=== PATIENT | female | born 1965 | race Caucasian/White ===

== ENCOUNTER 2020-06-09 12:28 | Inpatient (IN) | payer BC ==
[2020-06-09] MEDS ORDERED: Iopamidol-370 76% 500 ML 1 ML ONE (13:31)
[2020-06-09 13:37] LABS: Hemoglobin 15.6 g/dL (12.0-16.0); Mean Corpuscular HGB CONC 32.8 g/dL (32.0-36.0); Mean Corpuscular Hemoglobin 30.5 pg (27.0-31.0); Mean Corpuscular Volume 93.1 fL (78.0-98.0); Mean Platelet Volume 7.3 fL (7.4-10.4); Platelet Count 276 thou/uL (130-400); RBC Distribution Width 12.7 % (11.5-14.5); White Blood Cell (WBC) Count 21.5 thou/uL (4.8-10.8)
[2020-06-09 13:53] LABS: ALT (SGPT) 40 U/L (8-55); AST (SGOT) 27 U/L (5-34); Albumin 3.8 g/dL (3.5-5.0); Alkaline Phosphatase 83 U/L (40-110); Anion Gap 19 mmol/L (10-20); BUN (Urea Nitrogen) 13 mg/dL (9.8-20.1); Bilirubin, Total 0.7 mg/dL (0.2-1.2); Calc. Creatinine Clearance 0 mL/min (70-130); Calcium 8.6 mg/dL (7.8-10.44); Carbon Dioxide 20 mmol/L (22-29); Chloride 107 mmol/L (98-107); Globulin 3.4 g/dL (2.4-3.5); Glucose 199 mg/dL (70-105); Protein, Total 7.2 g/dL (6.0-8.3); Sodium 142 mmol/L (136-145)
[2020-06-09 13:57] LABS: CKMB 3.8 ng/mL (0-6.6)
--- NOTE | 2020-06-09 13:59 | RAD ---
EXAM: CHEST ONE VIEW HISTORY: Dyspnea, shortness of breath. COMPARISON: 04/08/2011 FINDINGS: The cardiac silhouette and pulmonary vasculature are within normal limits. There is a dense area of o pacity seen in the lateral aspect left lung base and the region of the lingula worrisome for pneumonia. Right lung appears clear. Degenerative changes are seen in the spine. IMPRESSION: Opacity lateral left lung base in the region of the lingula. Findings are worrisome for pneumonia. Fo llow-up to complete resolution is recommended.
[2020-06-09 14:26] LABS: Band 1 % (5-11); Lymphocytes 7 % (21-51); MDiff Complete? YES; Monocytes 4 % (0-10); Neutrophil 88 % (42-75); Platelet Morphology Comment Appears Adequate; RBC Morphology Normal
--- NOTE | 2020-06-09 15:31 | CT ---
CT arteriogram chest with IV contrast and 3-D imaging HISTORY: Dyspnea. Chest pain. FINDINGS: Extensive cylindrical and oval filling defects are present throughout segmental and subsegm ental bilateral pulmonary arteries, each main pulmonary artery, and a moderate sized defect straddling the pulmonary trunk bifurcation. Each lobe is involved. There is mild anterior bowing of t he right ventricle. IV contrast injected in the left arm distends through the right atrium and into the uppermost portions of the IVC. Peripheral infiltrate is present within the lateral aspect of the left upper lobe. Nonspecific lymph nodes are scattered about the mediastinum. The superiormost images show heterogeneous enlargement of the left thyroid lobe inferior pole with sm all foci of calcification. IMPRESSION : Extensive bilateral pulmonary emboli with overall high-grade clot burden and evidence of mild right v entricular strain. Infiltrate within the lateral aspect of the left upper lobe favored to represent a superimposed infla mmatory process (rather than developing pulmonary infarct). Partially visualized heterogeneous left thyroid lobe mass. Please consider nonemergent thyroid sonogr am for better characterization.
[2020-06-09] MEDS ORDERED: cefTRIAXone\\ROCEPHIN 2 GM VIAL ONE (15:38)
[2020-06-09] MEDS ORDERED: Aspirin Chewable 81 MG TAB ONE (15:39)
[2020-06-09 15:57] LABS: PTT 27.8 sec (22.9-36.1); Prothrombin Time 13.2 sec (12.0-14.7)
[2020-06-09 16:58] LABS: SARS-CoV-2 NAA Rapid Test Not Detected (NotDetected)
[2020-06-09] MEDS ORDERED: Heparin 25,000 units/D5W 500 ML IVPB SCH (17:00)
[2020-06-09] MEDS ORDERED: Heparin 10,000 UNITS/ 10 ML VIAL SLOW IVP SCH (17:00)
[2020-06-09] MEDS ORDERED: Heparin 25,000 units/D5W 500 ML ONE (17:19)
[2020-06-09] MEDS ORDERED: Heparin 10,000 UNITS/ 10 ML VIAL ONE (17:19)
[2020-06-09] MEDS ORDERED: Azithromycin 500 MG VIAL ONE (17:25)
--- NOTE | 2020-06-09 17:36 | CON ---
DATE OF CONSULTATION: 06/09/2020 REASON FOR CONSULTATION: Pulmonary embolism. HISTORY OF PRESENT ILLNESS: Ms Bradford is a 55-year-old female who presents to this hospital with a 2-week history of increasing shortness of breath, particularly worse over the last 24 hours. She did have one near syncopal event at home when bending over. She has been found to have large bilateral pulmonary emboli. To her knowledge, this is the 1st time she has had a pulmonary embolism. She denies any risk factors other than smoking. Of note, she has no history of control pill use, estrogen or progesterone use, cancer, thrombophilia, prolonged bed rest, recent surgery, or trauma. PAST MEDICAL HISTORY: Asthma. PAST SURGICAL HISTORY: Tonsillectomy and tubal ligation. SOCIAL HISTORY: She smokes about a pack per day. Does not use illicit drugs. Does not consume alcohol. She used to work in [employer], but is currently not employed. FAMILY MEDICAL HISTORY: Unremarkable for pulmonary embolism. MEDICATIONS: She uses an albuterol inhaler as needed. ALLERGIES: NONE. REVIEW OF SYSTEMS: Remarkable for dyspnea. No cough, no fever, no chills, no lack of taste or lack of smell. Otherwise, 12-point review of systems negative. PHYSICAL EXAMINATION: VITAL SIGNS: Temperature 98, pulse 114, blood pressure 147/88, respiratory rate 22, and O2 saturation 94% on 2 L. HEENT: Unremarkable. NECK: No adenopathy, JVD, or bruits. CARDIOVASCULAR: S1, S2. Regular without ventricular heave. ABDOMEN: Soft and nontender to palpation. EXTREMITIES: No clubbing or cyanosis. She has increased girth in both lower extremities. LABORATORY DATA: White blood cell count 21.5, hematocrit 47, platelet count 276. INR 1. D-dimer is 4.33, PTT 27.8. Sodium 142, potassium 4, chloride 107, CO2 of 20, BUN 13, creatinine 0.7, glucose 199. Troponin 0.256. Her COVID test is pending. CT pulmonary angiogram was reviewed, shows large bilateral pulmonary emboli. ASSESSMENT: Pulmonary embolism. The patient is normotensive and does not have much hypoxia that is not correctable, 2 L nasal cannula. RECOMMENDATIONS: Based on the way she looks right now, I think a heparin bolus and drip with close monitoring in the ICU is adequate. She should be anticoagulated in some form or fashion for at least 6 months and potentially longer if we cannot find a provoking risk factor. At the current time, I would withhold thrombolytics because of her stability. If she worsens, then they could be used. We will follow through on her COVID testing results. The patient needs to quit smoking. Job ID: [id number]
[2020-06-09 17:51] LABS: Troponin I 0.192 ng/mL (< 0.028)
[2020-06-09 18:12] LABS: Lactic Acid 2.4 mmol/L (0.5-2.2)
--- NOTE | 2020-06-09 18:35 | HP ---
PRIMARY CARE PHYSICIAN: Carly Saldaña MD CHIEF COMPLAINT: Shortness of breath. HISTORY OF PRESENT ILLNESS: This is a 55-year-old white female with a past medical history of asthma and obesity. She reports that some dyspnea over the past two weeks, and then over the past 2 to 3 days, she has had severe worsening of her shortness of breath. This is associated with a cough and it intermittently produces scant sputum. She felt worse today, so she called EMS. The patient was found to be saturating 88% on room air by EMS, came up well with oxygen. She was also tachycardic, was given albuterol, IV fluids, and Solu-Medrol. Per EMS, she had a temperature up to 100.2 last night, but the patient denied fever to me. In the emergency room, the patient had elevated white blood cell count of 21,000 and an elevated D-dimer, so she had a CT scan done of her chest, which showed a possible right upper lobe infiltrate, but also with moderate burden bilateral pulmonary emboli with some mild right heart strain. The patient was given heparin bolus and started on heparin drip, and the ER doctor did talk to Dr. Stone, who agreed with that plan, and we are now admitting the patient to the ICU. The patient was also given Rocephin and azithromycin in the emergency room, and she is starting to feel a little better right now. REVIEW OF SYSTEMS: CONSTITUTIONAL: See HPI. EYES: No double vision or blurred vision. ENT: She has chronic nasal congestion. No sore throat. CARDIOVASCULAR: No chest pain. No palpitations or racing heart. PULMONARY: See HPI. GASTROINTESTINAL: No abdominal pain. No nausea or vomiting. No diarrhea or constipation. GENITOURINARY: No dysuria or hematuria. MUSCULOSKELETAL: She has some chronic muscle aches, but nothing acute. SKIN: No rashes or lesions she has noted. NEUROLOGIC: No numbness, tingling, or focal weakness. PAST MEDICAL HISTORY: Asthma. PAST SURGICAL HISTORY: 1. Tonsillectomy. 2. Tubal ligation. SOCIAL HISTORY: The patient smokes one pack of cigarettes per day. No alcohol or illicit drug use. She lives with her , Mykel Mathews. This patient is a full code. Should she be incapacitated, her would be her medical decision maker. FAMILY HISTORY: No significant family medical history of blood clots, though she does have a half sibling, who had thyroid cancer. ALLERGIES: NO KNOWN DRUG ALLERGIES. CURRENT MEDICATIONS: Albuterol inhaler as needed. PHYSICAL EXAMINATION: VITAL SIGNS: Blood pressure 147/88, pulse 114, respirations 22, temperature 98.0, O2 saturation 94% on 2 L of oxygen. GENERAL: This is a well-developed obese white female, in no acute distress. HEENT: Pupils equal, round, and reactive to light. Oropharynx clear without lesions, erythema, or exudate. NECK: Supple. No lymphadenopathy. No thyroid nodules or enlargement. No JVD. HEART: Regular rhythm. Mildly tachycardic. No murmurs, rubs, or gallops. LUNGS: Clear to auscultation bilaterally. No wheezes, crackles, or rhonchi. No tachypnea. No increased work of breathing. ABDOMEN: Soft, obese, nontender to palpation. Normoactive bowel sounds. No hepatosplenomegaly or other masses. EXTREMITIES: No clubbing, cyanosis, or edema. The patient does have a positive Kasandra sign on the left. SKIN: No rashes or other lesions noted. NEUROLOGIC: The patient moves all extremities equally. No facial droop. PSYCHIATRIC: Alert and oriented x3. Normal mood and affect. LABORATORY DATA: CBC with a white blood cell count of 21,000, 88% neutrophils, 1% bands. Hemoglobin, hematocrit, and platelets are within normal limits. Coagulation profile notable for D-dimer of 4.3. The rest was normal. Complete metabolic panel is notable for carbon dioxide of 20 and glucose of 199. The rest was normal. Brain natriuretic peptide was elevated at 1000. Troponin was indeterminate at 0.256. CK-MB was normal. Lactic acid was negative. Serology for influenza A/B and COVID-19 were all negative. Chest x-ray: I reviewed the chest x-ray done in the emergency room along with the radiologist's report. There was some question of an opacity in the left lung base, though this could be overlying tissue, overall fairly normal chest x-ray. CTA of the chest does show extensive bilateral pulmonary emboli with overall high-grade clot burden and evidence of mild right ventricular strain, infiltrate within the lateral aspect of the left upper lobe, favored to represent a superimposed inflammatory process rather than developing pulmonary infarct, and there is also a partially visualized heterogeneous left thyroid lobe mass. EKG shows sinus tachycardia with inverted T waves in lead I, II, III, aVF, and V2 through V6, otherwise normal ST segments. ASSESSMENT: 1. Bilateral pulmonary emboli with some right heart strain. The patient was started on a heparin drip and will be watched in the ICU, and Dr. Stone has been consulted by the emergency room. We will need to monitor closely. We will check an echocardiogram to look at the cardiac function. 2. Pneumonia. The patient has leukocytosis and infiltrate on the chest x-ray along with the cough. We will continue Rocephin and azithromycin. Cultures are pending. 3. History of asthma. We will give albuterol as needed. 4. New left thyroid lobe mass seen on CT scan. We will check ultrasound. 5. Positive Kasandra's in the patient's left lower extremity. We will check venous ultrasounds of the lower extremities. 6. Obesity. 7. Tobacco abuse. 8. Gastrointestinal prophylaxis. We will put the patient on Pepcid twice a day. 9. Code status. The patient is a full code. Should she be incapacitated, her would be her medical decision maker. Job ID: [id number]
[2020-06-09] MEDS ORDERED: Ondansetron ODT 4 MG TAB PO PRN (20:23)
[2020-06-09] MEDS ORDERED: Senokot S 8.6-50 MG TAB PO PRN (20:23)
[2020-06-09] MEDS ORDERED: Guaifenesin DM 100-10/5 ML UDCUP PO PRN (20:23)
[2020-06-09] MEDS ORDERED: Albuterol Sulfate 2.5 mg/3 ml Neb NEB PRN (20:23)
[2020-06-09] MEDS ORDERED: Ondansetron PF 4 MG/2 ML Vial IVP PRN (20:23)
[2020-06-09] MEDS ORDERED: Acetaminophen 325 MG TAB PO PRN (20:23)
[2020-06-09] MEDS ORDERED: Acetaminophen 650 MG Suppository PR PRN (20:23)
[2020-06-09 21:13] VITALS: BMI 45.1
[2020-06-09] MEDS: Famotidine 20 MG TAB PO SCH (21:53)
--- NOTE | 2020-06-10 00:06 | ULT ---
EXAM: Bilateral lower extremity venous ultrasound HISTORY: Bilateral lower extremity pain and edema COMPARISON: None TECHNIQUE: Multiplanar grayscale and color Doppler images were obtained in a bilateral lower extremit y venous ultrasound. Spectral analysis of the Doppler waveforms were performed. FINDINGS: The bilateral common femoral vein, profunda femoral veins, and superficial femoral veins ar e normal in appearance without visible thrombus. These vessels demonstrate normal compression, flow, and augmentation. The left popliteal vein demonstrates a visible thrombus with partial compress ion and minimal flow. The right popliteal vein is patent. The left lower extremity thrombus extends down into the posterior tibial vein. The right posterior ti bial vein is patent. The greater saphenous veins are patent. IMPRESSION: Left lower summary DVT as above.
[2020-06-10 00:55] LABS: PTT 239.3 sec (22.9-36.1)
[2020-06-10 04:15] LABS: #Lymphocytes 2.8 thou/uL (1.20-3.40); #Monocytes 1.8 thou/uL (0.11-0.59); #Neutrophils 17.4 thou/uL (1.40-6.50); %Eosinophils 0.2 % (0.0-10.0); %Lymphocytes 12.7 % (21.0-51.0); %Monocytes 8.3 % (0.0-10.0); %Neutrophils 78.8 % (42.0-75.0); Hemoglobin 14.1 g/dL (12.0-16.0); Mean Corpuscular HGB CONC 32.8 g/dL (32.0-36.0); Mean Corpuscular Hemoglobin 30.7 pg (27.0-31.0); Mean Corpuscular Volume 93.5 fL (78.0-98.0); Platelet Count 225 thou/uL (130-400); RBC Distribution Width 12.7 % (11.5-14.5); Red Blood Cell (RBC) Count 4.59 mill/uL (4.20-5.40); White Blood Cell (WBC) Count 22.1 thou/uL (4.8-10.8)
[2020-06-10 04:34] LABS: Anion Gap 14 mmol/L (10-20); BUN (Urea Nitrogen) 19 mg/dL (9.8-20.1); Calc. Creatinine Clearance 194 mL/min (70-130); Calcium 8.5 mg/dL (7.8-10.44); Carbon Dioxide 21 mmol/L (22-29); Chloride 109 mmol/L (98-107); Glucose 195 mg/dL (70-105); Potassium 3.7 mmol/L (3.5-5.1); Sodium 140 mmol/L (136-145)
[2020-06-10] MEDS: Famotidine 20 MG TAB PO SCH ×2 (08:44→22:15)
[2020-06-10] MEDS ORDERED: Enoxaparin Sodium 30 MG/0.3 ML SYRINGE SC SCH (09:30)
[2020-06-10] MEDS ORDERED: Enoxaparin Sodium 120 MG/0.8 ML SYRINGE SC SCH (09:30)
[2020-06-10] MEDS ORDERED: Enoxaparin Sodium 100 MG/ML SYRINGE SC SCH (09:30)
--- NOTE | 2020-06-10 09:46 | PRG ---
DATE OF SERVICE: 06/10/2020 SUBJECTIVE: The patient is feeling good and has no acute complaints. OBJECTIVE: VITAL SIGNS: Temperature 98.6, pulse 105, blood pressure 156/97, O2 saturation 95% on 2 L. HEENT: Unremarkable. NECK: No JVD. CHEST: Clear. CARDIAC: S1 and S2. Regular. ABDOMEN: Soft. EXTREMITIES: No edema. LABORATORY DATA: PTT level is ranged between 75 and 239. White blood cell count 22.1, hematocrit 43, and platelet count 225. COVID test was negative. Sodium 140, potassium 3.7, BUN 19, creatinine 0.6, glucose 195. Echocardiogram showed EF 50% to 55%. She has paradoxical septal motion compatible with right heart overload and moderate to severe tricuspid regurgitation. ASSESSMENT: 1. Extensive pulmonary embolism. 2. Acute hypoxic respiratory failure secondary to pulmonary embolism. 3. Left lower extremity deep vein thrombosis. PLAN: I will transition her over to subcu Lovenox today given the difficulty with heparin drips. I would do this the subcu Lovenox for about 3 days and then cover her over to oral Eliquis after that. She is stable for transfer to the telemetry floor. Job ID: [id number]
[2020-06-10] MEDS ORDERED: Heparin 25,000 units/D5W 500 ML IVPB SCH (10:00)
--- NOTE | 2020-06-10 10:01 | ULT ---
THYROID ULTRASOUND INDICATION: Thyroid mass TECHNIQUE: Grayscale and color Doppler images were obtained of the thyroid gland. COMPARISON: Prior CTA of the chest dated June 09, 2020 FINDINGS: Right thyroid lobe: The right thyroid lobe measures 4.8 x 1.2 x 2.3 cm. There is a 1.2 x 0.9 x 1.4 an d a 1.1 x 0.7 x 1.0 cm solid hyperechoic, well-circumscribed, taller than wide, nodules within the mid aspect of the right thyroid lobe consistent with TIRADS 4 lesions. Small TIRADS 3 lesion measurin g 6 mm is seen within the superior pole of the right thyroid gland. Thyroid isthmus: The thyroid isthmus measures 0.39 cm. Left thyroid lobe: The left thyroid lobe measures 5.0 x 2.2 x 2.7 cm. There is a 2.1 x 2.2 x 2.5 cm, predominantly solid, isoechoic, well-circumscribed, taller than wide nodule in the lower pole the left thyroid lobe with associated macrocalcifications consistent with a TIRADS 5 lesion. There is a 1 .4 x 1.1 x 1.4 cm hypoechoic well-circumscribed, taller than wide lesion with internal punctate echogenic foci. This is consistent with a TIRADS 5 lesion. IMPRESSION: 1. 2 separate TIRADS 5 lesions within the left thyroid lobe require ultrasound-guided FNA. 2. TIRADS 4 lesions within the mid right thyroid gland (2 total). A follow-up ultrasound in one year is recommended to document stability. 3. Small TIRADS 3 lesion within the superior pole of the right thyroid gland. No ultrasound follow-up is recommended.
--- NOTE | 2020-06-10 11:19 | PDOC.HOSPP ---
- Subjective Encounter Date: 06/10/20 Subjective: Patient with past medical history of reactive airway disease/COPD in setting of chronic tobacco abuse presents emergency department for evaluation of progressive shortness of breath of about 2 weeks with sudden worsening over the last 2-3 days. Initial evaluation reveals elevated D-dimer with subsequent evidence of extensive bilateral pulmonary emboli, she was noted to be hypoxic and tachycardic. She also has ultrasound of lower extremity positive for left DVT. During CTA she was noted to have incidental thyroid nodule that will need eventual FNA. Seen examined this morning at bedside. She remains on 2 L O2 via NC. Denies any significant changes overnight with negative acute complaints. Remains somewhat short of breath but denies any chest pain. I started IV heparin now plan to transition to subcu Lovenox therapeutic dose with plans to start Eliquis in about 3 days per pulmonary service. Echocardiogram has been performed and is currently pending. - Objective Vital Signs & Weight: Vital Signs (12 hours) Temp Pulse Resp Pulse Ox 06/10/20 09:00 98.6 F 06/10/20 08:00 97 06/10/20 04:00 98.2 F 06/10/20 03:09 94 L 06/10/20 01:32 105 H 18 98 06/10/20 00:00 98.6 F Weight Weight 279 lb 12.266 oz Most Recent Monitor Data Heart Rate from ECG 105 NIBP 143/83 NIBP BP-Mean 103 Respiration from ECG 21 SpO2 96 I&O: 06/09/20 06/10/20 06/11/20 06:59 06:59 06:59 Intake Total 827 Output Total 350 300 Balance 477 -300 Result Diagrams: 06/10/20 03:25 06/10/20 03:25 Radiology Reviewed by me: Yes (CTA positive for bl PE, thyroid nodule, US LE with +'ve LLE DVT) Hospitalist ROS - Review of Systems Constitutional: denies: fever, chills, sweats, weakness, malaise, other Respiratory: reports: shortness of breath, SOB with excertion, wheezing Cardiovascular: denies: chest pain, palpitations, orthopnea, paroxysmal noc. dyspnea, edema, light headedness, other Gastrointestinal: denies: nausea, vomiting, abdominal pain, diarrhea, constipation, melena, hematochezia, other Genitourinary: denies: dysuria, frequency, incontinence, hematuria, retention, other Musculoskeletal: denies: neck pain, shoulder pain, arm pain, back pain, hand pain, leg pain, foot pain, other Neurological: denies: weakness, numbness, incoordination, change in speech, confusion, seizures, other - Medication Medications: Active Medications Generic Name Dose Route Start Last Admin Trade Name Freq PRN Reason Stop Dose Admin Albuterol Sulfate 2.5 mg 06/09/20 20:23 06/10/20 01:32 Albuterol Sulfate 2.5 Mg/3 Ml Neb NEB 2.5 mg Q4H PRN Administration Wheezing Enoxaparin Sodium 30 mg 06/10/20 09:30 06/10/20 09:46 Enoxaparin Sodium 30 Mg/0.3 Ml Syringe SC 06/10/20 11:30 30 mg 0930 RONALD Administration Enoxaparin Sodium 100 mg 06/10/20 09:30 06/10/20 09:45 Enoxaparin Sodium 100 Mg/Ml Syringe SC 06/10/20 12:30 100 mg 0930 RONALD Administration Famotidine 20 mg 06/09/20 21:00 06/10/20 08:44 Famotidine 20 Mg Tab PO 20 mg BID RONALD Administration - Exam General Appearance: NAD, awake alert Eye: PERRL, anicteric sclera ENT: normocephalic atraumatic, no oropharyngeal lesions, moist mucosa Neck: supple, symmetric, no JVD, no lymphadenopathy, no carotid bruit Heart: no murmur, no gallops, no rubs, normal peripheral pulses Heart - other findings: Sinus tachycardia of 105 Respiratory: no rales, no ronchi, normal chest expansion, no tachypnea, wheezes (Lateral expiratory wheezing) Gastrointestinal: soft, non-tender, non-distended, normal bowel sounds, no palpable masses, no hepatomegaly, no splenomegaly, no bruit Extremities: no cyanosis, no clubbing, no edema Neurological: cranial nerve grossly intact, normal sensation to touch, no weakness, no focal deficits, no new deficit Musculoskeletal: normal tone, normal strength, no muscle wasting Psychiatric: normal affect, normal behavior, A&O x 3 Hosp A/P - Plan old records reviewed/req A/P: Admitted with several days worsening of shortness of breath of symptoms that started about 2 weeks ago. CTA with evidence of extensive bilateral pulmonary emboli. Incidental finding of thyroid nodule. No extremity ultrasound positive for LLE DVT. Been transitioned to subcu Lovenox therapeutic dose with plans to start her Eliquis in about 3 days. Echocardiogram is currently pending. VTE/PE/DVT: Imaging positive for extensive bilateral pulmonary emboli, left lower extremity DVT. Risk factors include obesity, tobacco abuse, newly found thyroid nodule in which malignancy cannot be excluded at this point without pathology sample. Will remain on therapeutic anticoagulation. Follow-up echocardiogram results. Appears she is stable only with borderline tachycardia and minimal hypoxia requiring 2 L via nasal cannula. She appears stable to be t ransfer out of the ICU. Thyroid nodule: With new history of DVT and PE as well as chronic smoking history we will have to rule out malignancy. This will have to be coordinated in the next several days after patient is deemed to be stable from the PE standpoint. Follow-up on echocardiogram to assess heart strain. It is possible that we could arrange for briefly hold on anticoagulation after receiving evening Lovenox and proceed with FNA in the morning prior Lovenox dosing. PNA: Suspected PNA based on possible infiltrate to left upper lobe and leukocytosis. Continue with IV ABX Ceftriaxone plus Azithromycin. COPD: No true findings suggestive of acute exacerbation. She does have very mild bilateral expiratory wheezing. Continue IV ABX per PNA plan. Inhalers PRN. Hold off on steroids for now. Tobacco abuse: Extensively counseled. DISPOSITION: Pending clinical progression. Continue with above management.
[2020-06-10] MEDS: cefTRIAXone\\ROCEPHIN 1 GM in Sodium Chloride 0.9% 100 ML IVPB SCH (16:29)
[2020-06-10] MEDS: Azithromycin 500 MG in Sodium Chloride 0.9% 250 ML 250 ML IVPB SCH (17:13)
[2020-06-10] MEDS: Enoxaparin Sodium 30 MG/0.3 ML SYRINGE SC SCH (22:14)
[2020-06-10] MEDS: Enoxaparin Sodium 100 MG/ML SYRINGE SC SCH (22:15)
[2020-06-11 05:25] LABS: ALT (SGPT) 29 U/L (8-55); AST (SGOT) 17 U/L (5-34); Albumin 3.3 g/dL (3.5-5.0); Alkaline Phosphatase 63 U/L (40-110); Anion Gap 14 mmol/L (10-20); BUN (Urea Nitrogen) 22 mg/dL (9.8-20.1); Bilirubin, Total 0.3 mg/dL (0.2-1.2); Calc. Creatinine Clearance 175 mL/min (70-130); Calcium 8.3 mg/dL (7.8-10.44); Carbon Dioxide 24 mmol/L (22-29); Chloride 109 mmol/L (98-107); Globulin 2.9 g/dL (2.4-3.5); Glucose 108 mg/dL (70-105); Potassium 3.8 mmol/L (3.5-5.1); Protein, Total 6.2 g/dL (6.0-8.3); Sodium 143 mmol/L (136-145)
[2020-06-11 05:48] LABS: Band 5 % (5-11); Hemoglobin 13.6 g/dL (12.0-16.0); Lymphocytes 26 % (21-51); MDiff Complete? YES; Mean Corpuscular HGB CONC 31.9 g/dL (32.0-36.0); Mean Corpuscular Hemoglobin 29.9 pg (27.0-31.0); Mean Platelet Volume 7.6 fL (7.4-10.4); Monocytes 8 % (0-10); Neutrophil 61 % (42-75); Platelet Count 261 thou/uL (130-400); RBC Distribution Width 12.8 % (11.5-14.5); Red Blood Cell (RBC) Count 4.54 mill/uL (4.20-5.40); White Blood Cell (WBC) Count 20.7 thou/uL (4.8-10.8)
[2020-06-11] MEDS: Famotidine 20 MG TAB PO SCH ×2 (08:28→21:54)
[2020-06-11] MEDS: Enoxaparin Sodium 100 MG/ML SYRINGE SC SCH ×2 (08:28→21:54)
[2020-06-11] MEDS: Enoxaparin Sodium 30 MG/0.3 ML SYRINGE SC SCH ×2 (08:28→21:54)
--- NOTE | 2020-06-11 13:27 | PRG ---
DATE OF SERVICE: 06/11/2020 SUBJECTIVE: The patient is doing well, has no acute complaints. PHYSICAL EXAMINATION: VITAL SIGNS: Temperature 98.3, pulse 101, respirations 18, O2 saturations 95% on 2 L, and blood pressure 133/90. HEENT: Unremarkable. NECK: No JVD. CHEST: Clear anteriorly. CARDIAC: S1 and S2, regular. ABDOMEN: Soft. EXTREMITIES: No edema. LABORATORY DATA: White blood cell count 20, hematocrit 42.7, and platelet count 261. Sodium 143, potassium 3.8, chloride 109, CO2 of 24, BUN 22, creatinine 0.7, and glucose 108. ASSESSMENT: 1. PE. 2. DVT. PLAN: 1. Can probably convert to [facility] tomorrow and sent home on Monday. 2. Given extent of clots, needs at least 6 months of anticoagulation and perhaps even lifelong. After discharge, she will need to follow up with me in about one month. Job ID: [id number]
[2020-06-11] MEDS: cefTRIAXone\\ROCEPHIN 1 GM in Sodium Chloride 0.9% 100 ML IVPB SCH (16:15)
[2020-06-11] MEDS: Azithromycin 500 MG in Sodium Chloride 0.9% 250 ML 250 ML IVPB SCH (16:21)
--- NOTE | 2020-06-11 20:18 | PDOC.HOSPP ---
- Subjective Encounter Date: 06/11/20 Encounter Time: 11:30 Subjective: Patient seen and examined for pulmonary embolism/DVT. Denies any chest pain. Shortness of breath slightly better. No cough, chest pain or palpitations. - Objective Vital Signs & Weight: Vital Signs (12 hours) Temp Pulse Pulse Pulse Resp BP BP 06/11/20 16:30 98.4 F 96 16 06/11/20 11:00 90 90 159/97 H 133/90 06/11/20 09:23 06/11/20 08:24 98.3 F 101 H 18 BP BP Pulse Ox Pulse Ox Pulse Ox Pulse Ox 06/11/20 16:30 144/92 H 97 06/11/20 11:00 97 94 L 97 06/11/20 09:23 93 L 06/11/20 08:24 124/79 95 Weight Weight 279 lb 12.266 oz Most Recent Monitor Data Heart Rate from ECG 105 NIBP 137/77 NIBP BP-Mean 97 Respiration from ECG 22 SpO2 96 I&O: 06/10/20 06/11/20 06/12/20 06:59 06:59 06:59 Intake Total 827 600 480 Output Total 350 800 Balance 477 -200 480 Result Diagrams: 06/11/20 04:35 06/11/20 04:35 Additional Labs: Abnormal Lab Results - Last 48 hrs 06/10/20 00:15: APTT 239.3 H* 06/10/20 03:25: Chloride 109 H, Carbon Dioxide 21 L 06/10/20 03:25: WBC 22.1 H, Neutrophils % 78.8 H, Lymphocytes % 12.7 L, Neutrophils # 17.4 H, Monocytes # 1.8 H 06/10/20 03:25: APTT 75.1 H 06/10/20 11:37: APTT 92.1 H 06/11/20 04:35: Chloride 109 H, BUN 22 H, Albumin 3.3 L, Albumin/Globulin Ratio 1.1 L 06/11/20 04:35: WBC 20.7 H, MCHC 31.9 L Microbiology - Entire Visit 06/09/20 15:03 Venous blood - Left Hand Blood Culture - Preliminary NO GROWTH AT 48 HOURS 06/09/20 15:03 Venous blood - Right Hand Blood Culture - Preliminary NO GROWTH AT 48 HOURS EKG Reviewed by me: Yes (Sinus rhythm on telemetry) Hospitalist ROS - Review of Systems Cardiovascular: denies: chest pain, palpitations, orthopnea, paroxysmal noc. dyspnea, edema, light headedness, other Gastrointestinal: denies: nausea, vomiting, abdominal pain, diarrhea, constipation, melena, hematochezia, other - Medication Medications: Active Medications Generic Name Dose Route Start Last Admin Trade Name Freq PRN Reason Stop Dose Admin Albuterol Sulfate 2.5 mg 06/09/20 20:23 06/10/20 01:32 Albuterol Sulfate 2.5 Mg/3 Ml Neb NEB 2.5 mg Q4H PRN Administration Wheezing Enoxaparin Sodium 100 mg 06/10/20 21:00 06/11/20 08:28 Enoxaparin Sodium 100 Mg/Ml Syringe SC 100 mg 0900,2100 RONALD Administration Enoxaparin Sodium 30 mg 06/10/20 21:00 06/11/20 08:28 Enoxaparin Sodium 30 Mg/0.3 Ml Syringe SC 30 mg 0900,2100 RONALD Administration Famotidine 20 mg 06/09/20 21:00 06/11/20 08:28 Famotidine 20 Mg Tab PO 20 mg BID RONALD Administration Ceftriaxone Sodium 1 gm/ 100 mls @ 200 mls/hr 06/10/20 16:00 06/11/20 16:15 Sodium Chloride IVPB 100 mls 1600 RONALD Administration Azithromycin 500 mg/ Sodium 250 mls @ 250 mls/hr 06/10/20 17:00 06/11/20 16:21 Chloride IVPB 250 mls 1700 RONALD Administration - Exam General Appearance: ill appearing Neck: supple, no JVD Heart: no gallops, no rubs Respiratory: no wheezes, no ronchi Gastrointestinal: soft, non-tender Extremities: no edema Hosp A/P - Plan DVT proph w/lovenox Acute hypoxic respiratory failure due to extensive bilateral pulmonary embolism with right heart strain Left lower extremity DVT Morbid obesity with a BMI of 45.2 History of asthma Thyroid nodule Tobacco dependence Plan: Discontinue antibioticspneumonia probably ruled out. Patient on Lovenox 1 mg/kg. Patient understands risks associated with anticoagulation. Continue Pepcid. Nebulization as needed. Tobacco cessation was emphasized. Echocardiogram reviewed. Continue physical therapy. Thyroid biopsy as outpatient.
[2020-06-12] MEDS: Famotidine 20 MG TAB PO SCH ×2 (08:34→20:21)
[2020-06-12] MEDS: Enoxaparin Sodium 30 MG/0.3 ML SYRINGE SC SCH ×2 (08:34→20:22)
[2020-06-12] MEDS: Enoxaparin Sodium 100 MG/ML SYRINGE SC SCH ×2 (08:34→20:22)
[2020-06-12] MEDS ORDERED: Insulin Regular 300 UNITS/3 ML VIAL SC PRN ×2 (13:12)
[2020-06-12] MEDS ORDERED: Dextrose 50% Abboject 50 ML SYRINGE SLOW IVP PRN (13:12)
[2020-06-12] MEDS ORDERED: Dextrose 5% in Water 1,000 ML IV PRN (13:12)
--- NOTE | 2020-06-12 14:19 | PDOC.HOSPP ---
- Subjective Encounter Date: 06/12/20 Encounter Time: 13:30 Subjective: Patient seen and examined for pulmonary embolism. Short of breath on [id number] exertion. Requiring supplemental oxygen. No chest pain no palpitations. - Objective Vital Signs & Weight: Vital Signs (12 hours) Temp Pulse Pulse Pulse Resp BP BP 06/12/20 11:29 98.2 F 89 19 06/12/20 08:45 115 H 99 190/112 H 148/84 H 06/12/20 07:30 99.4 F 81 20 06/12/20 04:00 97.6 F 91 16 BP Pulse Ox Pulse Ox Pulse Ox 06/12/20 11:29 125/74 93 L 06/12/20 08:45 95 97 06/12/20 07:30 131/86 96 06/12/20 04:00 137/80 96 Weight Weight 279 lb 12.266 oz Most Recent Monitor Data Heart Rate from ECG 105 NIBP 137/77 NIBP BP-Mean 97 Respiration from ECG 22 SpO2 96 I&O: 06/11/20 06/12/20 06/13/20 06:59 06:59 06:59 Intake Total 600 480 Output Total 800 Balance -200 480 Result Diagrams: 06/11/20 04:35 06/11/20 04:35 Additional Labs: Abnormal Lab Results - Last 48 hrs 06/11/20 04:35: Chloride 109 H, BUN 22 H, Albumin 3.3 L, Albumin/Globulin Ratio 1.1 L 06/11/20 04:35: WBC 20.7 H, MCHC 31.9 L Microbiology - Entire Visit 06/09/20 15:03 Venous blood - Left Hand Blood Culture - Preliminary NO GROWTH AT 48 HOURS 06/09/20 15:03 Venous blood - Right Hand Blood Culture - Preliminary NO GROWTH AT 48 HOURS EKG Reviewed by me: Yes (Sinus rhythm on telemetry) Hospitalist ROS - Review of Systems Cardiovascular: denies: chest pain, palpitations, orthopnea, paroxysmal noc. dyspnea, edema, light headedness, other Gastrointestinal: denies: nausea, vomiting, abdominal pain, diarrhea, constipation, melena, hematochezia, other - Medication Medications: Active Medications Generic Name Dose Route Start Last Admin Trade Name Freq PRN Reason Stop Dose Admin Albuterol Sulfate 2.5 mg 06/09/20 20:23 06/10/20 01:32 Albuterol Sulfate 2.5 Mg/3 Ml Neb NEB 2.5 mg Q4H PRN Administration Wheezing Enoxaparin Sodium 100 mg 06/10/20 21:00 06/12/20 08:34 Enoxaparin Sodium 100 Mg/Ml Syringe SC 100 mg 09,2099 RONALD Administration Enoxaparin Sodium 30 mg 06/10/20 21:00 06/12/20 08:34 Enoxaparin Sodium 30 Mg/0.3 Ml Syringe SC 30 mg 09,2099 RONALD Administration Famotidine 20 mg 06/09/20 21:00 06/12/20 08:34 Famotidine 20 Mg Tab PO 20 mg BID RONALD Administration - Exam General Appearance: ill appearing Neck: supple, no JVD Heart: RRR, no gallops Respiratory: no wheezes, no ronchi Gastrointestinal: soft, non-tender, normal bowel sounds Extremities: no cyanosis Hosp A/P - Plan DVT proph w/lovenox Acute hypoxic respiratory failure due to extensive bilateral pulmonary embolism with right heart strain Left lower extremity DVT Morbid obesity with a BMI of 45.2 Hyperglycemiarule out diabetes mellitus type 2 History of asthma Thyroid nodule Tobacco dependencecounseled Plan: Continue Lovenox 1 mg/kg. Continue O2 supplementationwean as tolerated. Add insulin sliding scale. Check A1c in a.m. Recheck CBC in a.m. Continue other medications as above. Add as needed nebulizer treatment
[2020-06-13 04:52] LABS: #Basophils 0.2 thou/uL (0.0-0.2); #Eosinphils 0.2 thou/uL (0.0-0.7); #Lymphocytes 5.5 thou/uL (1.20-3.40); #Monocytes 1.3 thou/uL (0.11-0.59); #Neutrophils 7.6 thou/uL (1.40-6.50); %Basophils 1.1 % (0.0-1.0); %Eosinophils 1.1 % (0.0-10.0); %Lymphocytes 37.6 % (21.0-51.0); %Monocytes 8.7 % (0.0-10.0); %Neutrophils 51.6 % (42.0-75.0); Hemoglobin 13.4 g/dL (12.0-16.0); Mean Corpuscular HGB CONC 31.2 g/dL (32.0-36.0); Mean Corpuscular Hemoglobin 29.7 pg (27.0-31.0); Mean Corpuscular Volume 95.1 fL (78.0-98.0); Mean Platelet Volume 7.9 fL (7.4-10.4); Platelet Count 270 thou/uL (130-400); RBC Distribution Width 12.8 % (11.5-14.5); White Blood Cell (WBC) Count 14.7 thou/uL (4.8-10.8)
[2020-06-13 05:11] LABS: Anion Gap 14 mmol/L (10-20); BUN (Urea Nitrogen) 13 mg/dL (9.8-20.1); Calc. Creatinine Clearance 197 mL/min (70-130); Calcium 8.2 mg/dL (7.8-10.44); Carbon Dioxide 25 mmol/L (22-29); Chloride 106 mmol/L (98-107); Glucose 115 mg/dL (70-105); Potassium 3.9 mmol/L (3.5-5.1); Sodium 141 mmol/L (136-145)
[2020-06-13 05:17] LABS: Hemoglobin A1c 5.8 % (4.0-6.0)
[2020-06-13] MEDS: Famotidine 20 MG TAB PO SCH ×2 (08:29→21:54)
[2020-06-13] MEDS: Enoxaparin Sodium 30 MG/0.3 ML SYRINGE SC SCH (08:29)
[2020-06-13] MEDS: Enoxaparin Sodium 100 MG/ML SYRINGE SC SCH (08:29)
--- NOTE | 2020-06-13 16:01 | PDOC.HOSPP ---
- Subjective Encounter Date: 06/13/20 Encounter Time: 12:00 Subjective: pt up in bed no complains - Objective Vital Signs & Weight: Vital Signs (12 hours) Temp Pulse Resp BP BP Pulse Ox 06/13/20 15:35 98.1 F 94 17 141/94 H 94 L 06/13/20 12:46 98.8 F 90 16 147/86 H 93 L 06/13/20 07:43 99.2 F 76 16 154/93 H 96 Weight Weight 279 lb 12.266 oz Most Recent Monitor Data Heart Rate from ECG 105 NIBP 137/77 NIBP BP-Mean 97 Respiration from ECG 22 SpO2 96 I&O: 06/12/20 06/13/20 06/14/20 06:59 06:59 06:59 Intake Total 480 1840 Balance 480 1840 Result Diagrams: 06/13/20 03:55 06/13/20 03:55 Additional Labs: Accuchecks 06/13/20 06/13/20 06/12/20 10:23 05:40 19:51 POC Glucose 162 H 119 H 136 H Hospitalist ROS - Review of Systems Cardiovascular: denies: chest pain, palpitations, orthopnea, paroxysmal noc. dyspnea, edema, light headedness, other Gastrointestinal: denies: nausea, vomiting, abdominal pain, diarrhea, constipation, melena, hematochezia, other Genitourinary: denies: dysuria, frequency, incontinence, hematuria, retention, other - Medication Medications: Active Medications Generic Name Dose Route Start Last Admin Trade Name Freq PRN Reason Stop Dose Admin Famotidine 20 mg 06/09/20 21:00 06/13/20 08:29 Famotidine 20 Mg Tab PO 20 mg BID RONALD Administration Sodium Chloride 10 ml 06/12/20 21:00 06/13/20 08:29 Flush - Normal Saline 10 Ml Syringe IVF 10 ml Q12HR RONALD Administration - Exam Heart: negative: RRR, no murmur, no gallops, no rubs, normal peripheral pulses, irregular, diminshed peripheral pulses, murmur present, II/IV, III/IV Respiratory: negative: CTAB, no wheezes, no rales, no ronchi, normal chest expansion, no tachypnea, normal percussion, rales, rhonchi, tachypneic, wheezes Gastrointestinal: negative: soft, non-tender, non-distended, normal bowel sounds, no palpable masses, no hepatomegaly, no splenomegaly, no bruit, no guarding, no rigidity, tender to palpation, distended, diminished bowl sounds, voluntary guarding Extremities: negative: no cyanosis, no clubbing, no edema, 1+ LE edema, 2+ LE edema, clubbing Hosp A/P - Plan Acute hypoxic respiratory failure due to extensive bilateral pulmonary embolism with right heart strain Left lower extremity DVT Morbid obesity with a BMI of 45.2 Hyperglycemiarule out diabetes mellitus type 2 History of asthma Thyroid nodule Tobacco dependencecounseled Plan: Continue Lovenox 1 mg/kg. Continue O2 supplementationwean as tolerated. Add insulin sliding scale. Check A1c in a.m. Recheck CBC in a.m. Continue other medications as above. Add as needed nebulizer treatment 06/13 will change lovenox to eliquis. Asked nursing staff to wean pt off oxygen. possible discharge in am.
[2020-06-13] MEDS: Apixaban 5 MG TAB PO SCH (21:54)
[2020-06-14] MEDS: cloNIDine 0.1 MG TAB PO PRN ×2 (03:37→14:57)
[2020-06-14] MEDS: Famotidine 20 MG TAB PO SCH ×2 (09:00→20:35)
[2020-06-14] MEDS: Apixaban 5 MG TAB PO SCH ×2 (09:00→20:35)
--- NOTE | 2020-06-14 14:24 | PDOC.DS.DS ---
Provider - Provider Date of Admission: 06/09/20 16:25 Date of Discharge: 06/14/20 Admitting Provider: Barrett Cole MD Consultations: Pulmonary Primary Care Physician: LACHO HUGHES Course - Hospital Course Hospital Course: Patient is a very pleasant 35-year-old female who initially presented to the hospital with shortness of breath. Patient had CT chest which indicated bilateral PE. Pulmonology was consulted. She was also noted to have a left thyroid mass seen on CT. Patient was noted to have a left lower extremity DVT. Patient states that she has been living a very sedentary lifestyle during the quarantine time. Patient was started on which was then changed to Eliquis. She will follow-up with her primary care doctor and pulmonology. I have instructed her the risks of bleeding on Eliquis. Patient understands. She will require oxygen since she becomes hypoxic on ambulation. She had an echocardiogram which indicated an EF 50 to 55% with some right heart strain with elevated pulmonary artery pressure of 50 mm of mercury. I have told her that she will require a follow-up echo with her primary care in the next 2 to 3 months. Resuscitation Status: 06/09/20 17:31 Resuscitation Status Routine Resuscitation Status: FULL: Full Resuscitation Discussed with: Patient - Labs Lab Results: 06/13/20 03:55 06/13/20 03:55 Abnormal Lab Results - Last 48 hrs 06/13/20 03:55: WBC 14.7 H, MCHC 31.2 L, Basophils % 1.1 H, Neutrophils # 7.6 H, Lymphocytes # 5.5 H, Monocytes # 1.3 H Microbiology - Entire Visit 06/09/20 15:03 Venous blood - Left Hand Blood Culture - Preliminary NO GROWTH AT 48 HOURS 06/09/20 15:03 Venous blood - Right Hand Blood Culture - Preliminary NO GROWTH AT 48 HOURS - Physical Exam Vitals: Vital Signs (12 hours) Temp Pulse Resp BP BP Pulse Ox 06/14/20 11:51 98 F 88 16 132/80 94 L 06/14/20 07:39 98.4 F 83 16 146/86 H 95 06/14/20 03:37 184/99 H 06/14/20 03:12 98.4 F 92 18 166/103 H 93 L Weight Weight 279 lb 12.266 oz Most Recent Monitor Data Heart Rate from ECG 105 NIBP 137/77 NIBP BP-Mean 97 Respiration from ECG 22 SpO2 96 Physical Exam: The patient was seen and examined on the day of discharge. Problem - Discharge Plan Assessment: Acute hypoxic respiratory failure due to extensive bilateral pulmonary embolism with right heart strain Left lower extremity DVT Morbid obesity with a BMI of 45.2 Hyperglycemiarule out diabetes mellitus type 2 History of asthma Thyroid nodule Tobacco dependencecounseled Plan - Discharge Medications Prescriptions: Apixaban [Eliquis] 10 mg PO BID #44 tab Home Medications: Medication Instructions Recorded Confirmed Type Albuterol Sulfate [Proventil Hfa] 2 puff INH Q4H PRN 06/09/20 06/09/20 History Apixaban [Eliquis] 10 mg PO BID #44 tab 06/14/20 Rx Allergies: No Known Drug Allergies Allergy (Unverified 06/09/20 20:51) - Discharge Instructions Discharge Instructions:: Follow-up with shift production associate as outpatient for possible thyroid biopsy PLEASE FOLLOW UP WITH PRIMARY AND YOU WILL NEED ULTRASOUND OF YOUR HEART You also need to follow-up with your primary care doctor for colo noscopy/mammogram and Pap smear. Activity:: Activity as Tolerated Nourishment:: Heart Healthy Diet - Follow up Plan Referrals: Reynaldo Stone MD [Active] - 14 Days REYNALDO GODOY & [Primary Care Provider] - 7 Days Disposition: HOME Quality - Care Measures CORE MEASURES:: N/A
[2020-06-14 15:47] LABS: Troponin I 0.029 ng/mL (< 0.028)
[2020-06-14] MEDS ORDERED: Lisinopril 20 MG TAB PO SCH (16:30)
[2020-06-14] MEDS ORDERED: hydrALAZINE 25 MG TAB PO SCH ×2 (16:30→21:00)
[2020-06-15] MEDS: Apixaban 5 MG TAB PO SCH (08:20)
[2020-06-15] MEDS: Famotidine 20 MG TAB PO SCH (08:21)
[2020-06-15] MEDS ORDERED: Lisinopril 20 MG TAB PO SCH (09:00)
[2020-06-15 12:14] VITALS: BP 133/81; TEMP 97.5
--- NOTE | 2020-06-15 13:41 | PDOC.HOSPP ---
- Subjective Encounter Date: 06/15/20 Encounter Time: 10:30 Subjective: pt up in bed no complains - Objective Vital Signs & Weight: Vital Signs (12 hours) Temp Pulse Resp BP Pulse Ox 06/15/20 12:12 97.5 F L 84 14 133/81 92 L 06/15/20 08:17 98.7 F 81 14 132/89 93 L 06/15/20 05:08 98.5 F 85 18 162/87 H 94 L Weight Weight 279 lb 12.266 oz Most Recent Monitor Data Heart Rate from ECG 105 NIBP 137/77 NIBP BP-Mean 97 Respiration from ECG 22 SpO2 96 I&O: 06/14/20 06/15/20 06/16/20 06:59 06:59 06:59 Intake Total 120 Balance 120 Result Diagrams: 06/13/20 03:55 06/13/20 03:55 Additional Labs: Accuchecks 06/15/20 06/15/20 06/14/20 10:40 05:46 20:31 POC Glucose 152 H 103 H 150 H 06/14/20 16:53 POC Glucose 106 H Hospitalist ROS - Review of Systems Cardiovascular: denies: chest pain, palpitations, orthopnea, paroxysmal noc. dyspnea, edema, light headedness, other Gastrointestinal: denies: nausea, vomiting, abdominal pain, diarrhea, constipation, melena, hematochezia, other Genitourinary: denies: dysuria, frequency, incontinence, hematuria, retention, other - Medication Medications: Active Medications Generic Name Dose Route Start Last Admin Trade Name Freq PRN Reason Stop Dose Admin Apixaban 10 mg 06/13/20 21:00 06/15/20 08:20 Apixaban 5 Mg Tab PO 10 mg BID RONALD Administration Clonidine 0.1 mg 06/12/20 09:45 06/14/20 14:57 Clonidine 0.1 Mg Tab PO 0.1 mg Q4H PRN Administration SBP GREATER THAN 160 Famotidine 20 mg 06/09/20 21:00 06/15/20 08:21 Famotidine 20 Mg Tab PO 20 mg BID RONALD Administration Lisinopril 40 mg 06/15/20 09:00 06/15/20 08:20 Lisinopril 20 Mg Tab PO 40 mg DAILY RONALD Administration Sodium Chloride 10 ml 06/12/20 21:00 06/15/20 08:21 Flush - Normal Saline 10 Ml Syringe IVF 10 ml Q12HR RONALD Administration - Exam Heart: negative: RRR, no murmur, no gallops, no rubs, normal peripheral pulses, irregular, diminshed peripheral pulses, murmur present, II/IV, III/IV Respiratory: negative: CTAB, no wheezes, no rales, no ronchi, normal chest expansion, no tachypnea, normal percussion, rales, rhonchi, tachypneic, wheezes Gastrointestinal: negative: soft, non-tender, non-distended, normal bowel sounds, no palpable masses, no hepatomegaly, no splenomegaly, no bruit, no guarding, no rigidity, tender to palpation, distended, diminished bowl sounds, voluntary guarding Extremities: negative: no cyanosis, no clubbing, no edema, 1+ LE edema, 2+ LE edema, clubbing Hosp A/P - Plan Acute hypoxic respiratory failure due to extensive bilateral pulmonary embolism with right heart strain Left lower extremity DVT Morbid obesity with a BMI of 45.2 Hyperglycemiarule out diabetes mellitus type 2 History of asthma Thyroid nodule Tobacco dependencecounseled Plan: Continue Lovenox 1 mg/kg. Continue O2 supplementationwean as tolerated. Add insulin sliding scale. Check A1c in a.m. Recheck CBC in a.m. Continue other medications as above. Add as needed nebulizer treatment 06/13 will change lovenox to eliquis. Asked nursing staff to wean pt off oxygen. possible discharge in am. 06/15 pt will be discharge today. she feels well today and no chest pain.
--- NOTE | 2020-06-16 16:09 | PQF ---
CLINICAL DOCUMENTATION CLARIFICATION FORM: Dear : Jeremias Date / Time: 06/16/20 152 Please exercise your independent, professional judgment in responding to the clarification form. Clinical indicators are provided on the bottom of this form for your review Sepsis: [ ] Ruled in diagnosis [ ] Continue to treat [ ] Resolved [ x ] Ruled out diagnosis [ ] Improving [ ] Cannot rule out diagnosis [ ] Other diagnosis [ ] Unable to determine In addition, please specify: Present on Admission (POA): [ ] Yes [ ] No [ ] Unable to determine Clinical Indicators - Signs / Symptoms / Labs 1. per Lab Results on 06/09/20 WBC 21.5 Lactic acid 2.4 2. per V/S Flow Sheet on 06/09/20 Tachycardia 104-118/min Respirations 24/min Risk Factors 1. PE, Pneumonia, Severe Sepsis per ED Doctor Note on 06/09/20 2. PE, Pneumonia per H&P on 06/09/20 3. PE/DVT, Pneumonia per Dr. Ruiz on 06/10/20 4. Pneumonia ruled out per Dr. Mcdowell on 06/11/20 Treatments 1. IV Zithromax & Rocephin per MAR on 06/09/20 2. Telemetry per Physician Orders on 06/10/20 CDS/[employer] Signature: Yamilex BANKS RN Phone #: [phone] Date/Time: 06/16/201523 This is a permanent part of the Medical Record [facility]
--- NOTE | 2020-06-16 16:31 | PQF ---
CLINICAL DOCUMENTATION CLARIFICATION FORM: Dear : Jeremias Date / Time: 06/16/20 1612 Please exercise your independent, professional judgment in responding to the clarification form. Clinical indicators are provided on the bottom of this form for your review [x ] Type 2 IN (T2MI) secondary to:Acute Hypoxic respiratory Failure r/t Pulmonary Embolism [ ] Other: diagnosis [ ] Unable to determine In addition, please specify: Present on Admission (POA): [ x ] Yes [ ] No [ ] Unable to determine Clinical Indicators - Signs / Symptoms / Labs SOB worsening over last several days per D Doctor Note on Troponin 0.256, 0.192, 0.190 per Lab Results on 06/09/20 Risk Factors PE with Cor Pulmonale per ED Doctor Note on 06/09/20 Treatments Oxygen 2lpm nc per V.S Flow Sheet on 06/09/20 Telemetry per Physician orders on 06/09/20 CDS/Cane Loader Signature:Yamilex ABNKS RN Phone #: [phone] Date/Time: 06/16/20 0597 This is a permanent part of the Medical Record [facility]
--- NOTE | 2020-06-20 14:47 | EKG ---
Test Reason : SOB Blood Pressure : / mmHG Vent. Rate : 115 BPM Atrial Rate : 115 BPM P-R Int : 136 ms QRS Dur : 084 ms QT Int : 382 ms P-R-T Axes : 000 -31 257 degrees QTc Int : 528 ms Sinus tachycardia Left axis deviation Abnormal ECG Confirmed by JEAN MARIE SANTOS DO ([id number]), greeting card editor ASHELY SERRA ([id number]) on 06/20/2020 2:47:01 PM Referred By: Confirmed By:JEAN MARIE SANTOS DO
== END 2020-06-15 13:57 | disposition home or self-care (01) | DRG 175 ==
LOC: ERS 12:28 → CCU 16:25 → 2NO 06-10 11:54
PROVIDERS: ADMIT Emergency Medicine; ATTEND Internal Medicine
DX: I26.99 Other pulmonary embolism without acute cor pulmonale (principal); J96.01 Acute respiratory failure with hypoxia; I21.A1 Myocardial infarction type 2; Z68.42 Body mass index [BMI] 45.0-49.9, adult; I82.442 Acute embolism and thrombosis of left tibial vein; I82.432 Acute embolism and thrombosis of left popliteal vein; E66.01 Morbid (severe) obesity due to excess calories; Z20.828 Contact with and (suspected) exposure to other viral communicable diseases; J45.909 Unspecified asthma, uncomplicated; E04.1 Nontoxic single thyroid nodule; F17.210 Nicotine dependence, cigarettes, uncomplicated; R73.9 Hyperglycemia, unspecified; I51.89 Other ill-defined heart diseases; Z98.51 Tubal ligation status; Z79.899 Other long term (current) drug therapy
CPT/HCPCS: 0240U; 36415; 36416; 71045; 71275; 76536; 80048; 80053; 82553; 83036; 83605; 83880; 84443; 84484; 85025; 85379; 85610; 85730; 87040; 93005; 93306; 93970; 94640; 96361; 96365; 96366; 96368; 96375; J0456; J0696; J1644; J1650; J3490; J7050; J7611; Q9967